=== PATIENT | female | born 1950 | race Asian ===

== ENCOUNTER 2022-09-04 12:49 | Outpatient (CLI) | payer MEDICARE, OTHER | END 2022-09-04 12:50 | disposition home or self-care (01) | LOC: CT 12:49 | PROVIDERS: ATTEND Family Medicine | DX: R51.9 Headache, unspecified (principal); R60.9 Edema, unspecified | CPT/HCPCS: 70450 ==

== ENCOUNTER 2023-01-17 14:39 | Outpatient (CLI) | payer MEDICARE, OTHER | END 2023-01-17 14:40 | disposition home or self-care (01) | LOC: SCSRAD 14:39 | PROVIDERS: ATTEND Family Medicine | DX: M54.6 Pain in thoracic spine (principal) | CPT/HCPCS: 72072 ==

== ENCOUNTER 2024-01-24 11:41 | Outpatient (CLI) | payer MEDICARE, OTHER | END 2024-01-24 11:42 | disposition home or self-care (01) | LOC: SCSRAD 11:41 | PROVIDERS: ATTEND Nurse Practitioner Family | DX: R07.81 Pleurodynia (principal) ==